=== PATIENT | female | born 1940 | race Caucasian/White ===

== ENCOUNTER → 2016-11-22 | Outpatient (CLI) | payer MEDICARE ==
--- NOTE | 2016-11-23 13:47 | MRI ---
EXAM DESCRIPTION: Lumbar Spine w/o Contrast CLINICAL HISTORY: 76 years Female, LUMBAR spine pain and DISEASE COMPARISON: None. TECHNIQUE: Multiplanar, multisequence imaging of the lumbar spine was performed without contrast. FINDINGS: There is dextroscoliosis of the lumbar spine with lateral translation of L4 on L5, L3 on L4 and L1 on L2. Marrow signal and vertebral body height are unremarkable. Endplate edema noted at L2-3 and L4-5. L1-L2: Circumferential disc osteophyte complex. There is lateral right neural foraminal narrowing. There is moderate left neural foraminal narrowing. The AP diameter of the spinal canal is unremarkable. L2-3: Facet degeneration bilaterally along with ligamentum flavum thickening. Circumferential disc osteophyte complex. The midline diameter of the spinal canal is adequate at 1 m. Bilateral neuroforamen are narrowed moderately. L3-4: Facet degeneration, ligamentum flavum thickening and unroofing of the intervertebral disc due to anterior listhesis. The midline diameter of the spinal canal is narrowed to 6 mm. There is moderate left and mild right neuroforaminal narrowing. L4-5: Moderate facet degeneration and ligamentum flavum thickening. There is a circumferential disc osteophyte complex. The midline diameter of the spinal canal is narrowed to 9 mm. There is moderate bilateral neural foraminal narrowing. L5-S1: Moderate facet degeneration. Anterior listhesis of L5 on S1. Unroofing of the intervertebral discs. The spinal canal is adequate. There is severe right and moderate left neural foraminal narrowing. IMPRESSION: There is left lateral translation and anterior listhesis of multiple levels as described above. This is most pronounced at L3-4. At this level there is grade 1 anterior listhesis which results in near severe spinal canal narrowing as the canal measures 6 mm in diameter. Multilevel neural foraminal narrowing noted with probable contact of the exiting right L4 and right L5 nerve roots. There is likely contact of the exiting left L1, left L2, left L3, left L4 and possibly the left L5 nerve roots. These findings could result in radiculopathy comment the patient is symptomatic. Electronically signed by: Bassam Castañeda MD 11/23/2016 8:43 AM [employer]
== END | disposition home or self-care (01) ==
LOC: MRI 11-01 08:38
PROVIDERS: ATTEND Family Medicine
DX: M51.27 Other intervertebral disc displacement, lumbosacral region (principal)

== ENCOUNTER 2017-02-06 11:00 | Day surgery (SDC) | payer MEDICARE ==
[2017-02-06] MEDS ORDERED: methylPREDNISolone ACETATE 80 MG/ML VIAL ONE (11:12)
[2017-02-06] MEDS ORDERED: SODIUM BICARBONATE VIAL 50 MEQ/50 ML VIAL ONE (11:12)
[2017-02-06] MEDS ORDERED: SODIUM CHLORIDE 0.9% 10 ML VIAL ONE (11:12)
[2017-02-06] MEDS: LIDOCAINE 1% MPF 5 ML VIAL ONE ×2 (12:05→12:11)
[2017-02-06 12:50] VITALS: BP 157/83; TEMP 98.4; O2SAT 99
== END 2017-02-06 12:30 | disposition home or self-care (01) ==
LOC: AMB 11:00
PROVIDERS: ATTEND Anesthesiology Pain Medicine
DX: M51.16 Intervertebral disc disorders with radiculopathy, lumbar region (principal); M54.5 Low back pain; I10 Essential (primary) hypertension; M81.0 Age-related osteoporosis without current pathological fracture; Z87.891 Personal history of nicotine dependence; Z79.899 Other long term (current) drug therapy; Z96.649 Presence of unspecified artificial hip joint
CPT/HCPCS: 62323; 76000; J1030

== ENCOUNTER → 2017-02-22 | Outpatient (CLI) | payer MEDICARE | END | disposition home or self-care (01) | LOC: GMAJ 14:31 | PROVIDERS: ATTEND Family Medicine | DX: N39.0 Urinary tract infection, site not specified (principal) ==

== ENCOUNTER → 2017-09-04 | Outpatient (CLI) | payer MEDICARE | END | disposition home or self-care (01) | LOC: GMAJ 11:42 | PROVIDERS: ATTEND Family Medicine | DX: E03.9 Hypothyroidism, unspecified (principal) ==

== ENCOUNTER → 2017-12-21 | Outpatient (CLI) | payer MEDICARE ==
--- NOTE | 2017-12-26 15:36 | MAM ---
EXAM DESCRIPTION: 3D Screening BILATERAL : Digital Mammography. CLINICAL HISTORY: 77 years Female ANNUAL SCREENING . No complaints. No family history of breast cancer. Postmenopausal. Currently on HRT. Prior cyst aspiration and biopsy left breast.. COMPARISON: 2-D digital screening bilateral study 08/22/2016. Report from prior examination also reviewed. TECHNIQUE: Bilateral CC and MLO projection full-field images, 3-D tomosynthesis digital mammographic technique. Also bilateral synthesized CC/ MLO full-field images. CAD not utilized. FINDINGS: The breast parenchymal density pattern is: Extremely dense breast tissue, which lowers the sensitivity of mammography. No skin thickening or nipple retraction right axillary lymph node. Bilateral coarse and solitary small microcalcifications. Groups of coarse calcifications in the right breast. No focal, stellate mass or density, focal asymmetry , and no suspicious microcalcifications bilaterally. Stable mammograms compared to prior study, taking into account differences in mammographic technique IMPRESSION: BI-RADS CATEGORY: 2 - BENIGN FINDINGS. FOLLOW UP: Routine digital bilateral screening, one year interval from November 2017. Written communication explaining the IMPRESSION and follow-up, will be mailed to the patient and referring health care provider. According to the [employer], yearly mammograms are recommended starting at age 40 and continuing as long as a woman is in good health. Any breast change noted on a breast self-exam should be reported promptly to the patient's healthcare provider. Breast MRI is recommended for women with an approximately 20-25% or greater lifetime risk of breast cancer, including women with a strong family history of breast or ovarian cancer and women who have been treated for Hodgkin's disease. A negative mammographic report should not delay tissue diagnosis in patients with significant clinical history or physical findings. Extremely dense breast tissue limits the sensitivity of digital mammography. Electronically signed by: Victoriano Pritchard MD 12/26/2017 3:34 PM CDT
== END ==
LOC: MAMMO 14:00
PROVIDERS: ATTEND Family Medicine
DX: Z12.31 Encounter for screening mammogram for malignant neoplasm of breast (principal)

== ENCOUNTER → 2018-03-28 | Outpatient (CLI) | payer MEDICARE | LOC: GMAJ 10:48 | PROVIDERS: ATTEND Family Medicine | DX: E03.9 Hypothyroidism, unspecified (principal) ==

== ENCOUNTER → 2018-09-18 | Outpatient (CLI) | payer MEDICARE | LOC: GMAJ 11:52 | PROVIDERS: ATTEND Family Medicine | DX: E03.9 Hypothyroidism, unspecified (principal) ==

== ENCOUNTER → 2019-05-16 | Outpatient (CLI) | payer MEDICARE ==
--- NOTE | 2019-05-17 13:27 | MAM ---
EXAM DESCRIPTION: 3D Screening BILATERAL : Digital Mammography. CLINICAL HISTORY: 78 years Female ANNUAL SCREENING . No complaints. No personal history of breast cancer. Remote family history of breast cancer. Childbirth. Hysterectomy 50+ years ago. HRT 5 or more years ago. Prior benign biopsy left breast. Lifetime risk of developing breast cancer (Tyrer-Cuzick model)(%): 3.8. COMPARISON: Bilateral screening digital breast tomosynthesis 12/21/2017. 2-D digital screening bilateral mammography 08/22/2016. TECHNIQUE: Bilateral CC and MLO projection full-field images, digital tomosynthesis mammographic technique. Bilateral digital 2-D full-field MLO images. CAD not available for tomosynthesis or 2-D images. FINDINGS: The breast parenchymal density pattern is: Heterogeneously dense breast tissue, which may obscure small masses. No skin thickening or nipple retraction.. At least 4 groups of coarse and heterogeneous microcalcifications in the right breast and solitary coarse microcalcifications left breast with a small group. Calcifications are increasing in the groups in the right breast making degenerating fibroadenomas more likely as the cause. Not associated with mass density.No new focal, stellate mass or density, focal asymmetry , and no suspicious microcalcifications bilaterally. IMPRESSION: Benign exam. BIRAD CATEGORY: 2 BENIGN FINDINGS. RECOMMENDATIONS: FOLLOW UP: Routine digital bilateral mammographic screening, one year interval from May 2019. Written communication explaining the IMPRESSION and follow-up, will be mailed to the patient and referring health care provider. According to the [employer], yearly mammograms are recommended starting at age 40 and continuing as long as a woman is in good health. Any breast change noted on a breast self-exam should be reported promptly to the patient's healthcare provider. Breast MRI is recommended for women with an approximately 20-25% or greater lifetime risk of breast cancer, including women with a strong family history of breast or ovarian cancer and women who have been treated for Hodgkin's disease. A negative mammographic report should not delay tissue diagnosis in patients with significant clinical history or physical findings. Extremely dense breast tissue limits the sensitivity of digital mammography. Electronically signed by: Victoriano Pritchard MD 05/17/2019 1:26 PM CDT
== END ==
LOC: MAMMO 10:30
PROVIDERS: ATTEND Family Medicine
DX: Z12.31 Encounter for screening mammogram for malignant neoplasm of breast (principal)

== ENCOUNTER → 2019-07-12 | Outpatient (CLI) | payer MEDICARE, OTHER ==
--- NOTE | 2019-07-14 15:43 | MRI ---
EXAM DESCRIPTION: Lumbar Spine w/o Contrast : Magnetic Resonance Imaging. CLINICAL HISTORY: Spinal stenosis COMPARISON: MR scan of the lumbar spine 11/22/2016. TECHNIQUE: Multiplanar, multiple standard sequences, non contrast MRI, lumbar spine. FINDINGS: L5-S1: The disc is well visualized on axial T2 series 501, image 3. Moderate disc space loss. 5 mm anterolisthesis with disc remnant bulging posteriorly with the endplate. Bilateral hypertrophic facets, more arthrosis right than left, with right lateral recess narrowing. AP canal diameter 11 mm. Moderate left foraminal narrowing and right foraminal stenosis. Unchanged since the prior study. 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 L4-L5: Diffuse disc desiccation and endplate changes more in the midline into the left of midline. Posterior broad-based bulge abutting the thecal sac. Posterior disc osteophyte complex larger on the right with right subarticular recess stenosis and compromising right L5 nerve. Severe left foraminal narrowing or mild stenosis. This is progressed since the prior study. Borderline right foraminal stenosis. Narrowing of the left subarticular recess. L3-L4: Disc desiccation and 5 mm grade 1 anterolisthesis. Anterior disc bulge. Posterior disc migrates above the disc space. Bilateral hypertrophic facet arthrosis and thickening of the ligaments. AP canal diameter 7.5 mm. Borderline bilateral foraminal stenosis. This has progressed since the prior study. L2-L3: Disc desiccation and minimal disc space loss. Disc desiccation minimal disc space loss anterior disc bulging and endplate ridging. Facet hypertrophic arthrosis bilaterally more on the left with flavum ligament thickening. AP canal diameter 10 mm. Moderate right foraminal narrowing and left foraminal stenosis. Unchanged since the prior study. L1-L2: Moderate disc desiccation and disc space loss more in the midline into the right of midline. Disc osteophyte complex encroaching into the right side soft tissues and right foramen with stenosis. Minimal narrowing of the left subarticular recess. Mild to moderate hypertrophic facet arthrosis and ligament thickening with AP canal diameter 11 mm. Moderate left foraminal narrowing. Stable since the prior study. L5-S1: Disc desiccation with disc space preserved. Small posterior disc bulge. Lateral mild hypertrophic facet arthrosis more left than right. Bilateral foramina are patent. Conus terminates at this level. Stable since the prior study. A larger muffins dextroscoliosis L1 L4. Circumscribed hyperintense T1 and T2 signal in a hemangioma Central L3 and posterior L2 stable since the prior study. Paravertebral soft tissues muscle atrophy paraspinal and psoas. Distal cord normal signal and caliber. Otherwise normal marrow signal in the remaining vertebral bodies and the posterior elements. Vertebral bodies are not compressed at any level. IMPRESSION: 1. Multiple levels of facet degeneration and thickened ligaments, bulging desiccated discs with disc space loss and spondylosis, canal and foraminal narrowing. 2. Anterolisthesis L5-S1 and moderate canal narrowing. Right foraminal stenosis stable since the prior study. 3. Posterior spondylosis L4-L5 with right subarticular recess stenosis compromising right L5 nerve. Severe left foraminal narrowing or mild stenosis. Progressed since the prior study. 4. Multifactorial L3-L4 moderate canal stenosis and borderline bilateral foraminal stenosis which is progressed since the prior study. 5. Multifactorial borderline mild central canal stenosis L2-L3 with left foraminal stenosis. Stable since the prior study. 6. Right side disc osteophyte complex at L1-L2 with right foraminal stenosis. Unchanged since the prior study. Electronically signed by: Victoriano Pritchard MD 07/14/2019 3:41 PM CDT
== END ==
LOC: MRI 10:52
PROVIDERS: ATTEND Family Medicine
DX: M48.062 Spinal stenosis, lumbar region with neurogenic claudication (principal); M51.36 Other intervertebral disc degeneration, lumbar region; M47.896 Other spondylosis, lumbar region; M43.17 Spondylolisthesis, lumbosacral region; M25.78 Osteophyte, vertebrae

== ENCOUNTER → 2019-08-12 | Outpatient (CLI) | payer MEDICARE | LOC: GMAJ 10:47 | PROVIDERS: ATTEND Family Medicine | DX: E03.9 Hypothyroidism, unspecified (principal) ==

== ENCOUNTER → 2019-11-20 | Outpatient (CLI) | payer MEDICARE | LOC: GMAJ 14:09 | PROVIDERS: ATTEND Family Medicine | DX: E03.8 Other specified hypothyroidism (principal); Z79.899 Other long term (current) drug therapy ==

== ENCOUNTER → 2020-02-14 | Outpatient (CLI) | payer MEDICARE | LOC: GMAJ 11:38 | PROVIDERS: ATTEND Family Medicine | DX: E03.9 Hypothyroidism, unspecified (principal) ==

== ENCOUNTER → 2020-02-26 | Outpatient (CLI) | payer OTHER ==
--- NOTE | 2020-02-27 13:50 | MRI ---
EXAM DESCRIPTION: Lumbar Spine w/o Contrast : Magnetic Resonance Imaging. CLINICAL HISTORY: SPONDYLOSIS COMPARISON: MRI scan lumbar spine without contrast July 2019. TECHNIQUE: Multiplanar, multiple standard sequences, non contrast MRI, lumbar spine. FINDINGS: L5-S1: The disc is well visualized on axial T2 series 501, image 3. Disc desiccation and moderate disc space loss more to the left of midline. Moderate endplate reactive changes anterior to the right of midline. Grade 1 anterolisthesis 6 mm. Posterior disc remnant uncovered with minimal bulge. Disc osteophyte complex and spondylolisthesis contributing to severe foraminal stenosis on the right, and moderate to severe left foraminal narrowing. Degenerative hypertrophy of the posterior flavum ligaments and facet joints (canal elements). AP canal diameter 11 mm. Bilateral subarticular recess narrowing. Perineural cyst right S1-S2. No interval change. L4-L5: Moderate to severe disc space loss more to the left of midline. Anterior disc bulging and endplate ridging. Chronic endplate Schmorl's nodes. Posterior broad-based disc remnant bulge with spurs. 2 mm grade 1 retrolisthesis. Degenerative hypertrophy of the canal elements more on the right. Right subarticular recess stenosis with possible compromise descending right L5 nerve. AP canal diameter 10 mm. Borderline right foraminal stenosis and severe left foraminal narrowing or borderline stenosis. L3-L4: Disc desiccation and mild to moderate disc space loss with anterior disc bulge. 6 mm grade 1 anterolisthesis with posterior disc uncovered and migrating superiorly. Moderate degenerative hypertrophy of the canal elements. AP canal diameter 7.5 mm. Disc bulge into the left foramen with facet hypertrophy resulting in borderline left foraminal stenosis. Mild to moderate right foraminal narrowing. Significant left subarticular recess narrowing or stenosis with possible compromise left L4 nerve. No significant change from prior study. L2-L3: Disc desiccation with minimal to moderate disc space loss on the left and moderate to advanced endplate reactive changes including Schmorl's nodes. Right-sided disc space is maintained. Anterior disc bulge. Posterior midline disc remnant migrating above the disc space 4 mm. Moderate degenerative hypertrophic changes in the canal elements more on the left. AP canal diameter 9 mm. Bilateral narrowing of the subarticular recesses. Severe right foraminal narrowing and borderline left foraminal stenosis. Compromise of the right foramen has progressed since the prior study, otherwise stable. L1-L2: Disc desiccation with left side disc space preserved but moderate endplate reactive changes including Schmorl's nodes in the midline into the left of midline. 3 mm grade 1 retrolisthesis with posterior broad-based disc spur complex. Anterior disc spur complex and disc bulge. Moderate degenerative hypertrophy of the canal elements. AP canal diameter 10 mm. Disc spur complex encroaching on the right foramen which is stenotic. Severe left foraminal narrowing. Minimal desiccation T12-L1 disc with disc space maintained. No posterior bulge. Minimal degenerative hypertrophy of the canal elements, more on the left. Canal and foramina are patent. Conus terminates at this level. Stable since the prior study. Lumbar dextroscoliosis with L5-S1 and lower thoracic compensatory levoscoliosis. Paravertebral soft tissues with muscle atrophy. Distal cord normal signal and caliber. Normal marrow signal in the remaining lumbar vertebral bodies and the posterior elements. However, abnormal marrow edema like signal hyperintense on STIR sequence and hypointense on T1 sequence in the S2 segment which is the lowest margin of the study. Vertebral bodies are not compressed at any level. IMPRESSION: 1. Multilevel abnormalities in the lumbar spine with spondylolisthesis, spondylosis, desiccated disc, bulging disc spur complexes, degenerative hypertrophy of the facet joints and posterior flavum ligaments, resulting in canal narrowing/stenosis, foraminal stenosis, and subarticular recess stenosis. Compromise of the right foramen at L2-L3 has progressed since the prior study, but the remaining lumbar spine abnormalities are stable. 2. New finding marrow edema like signal in the S2 segment which is at the lowest level of the study. If this correlates with clinical findings, consider follow-up MRI scan of the pelvis, sacrum, and coccyx without contrast. Electronically signed by: Victoriano Pritchard MD 02/27/2020 1:48 PM CDT
== END ==
LOC: MRI 13:48
PROVIDERS: ATTEND Family Medicine
DX: M47.817 Spondylosis without myelopathy or radiculopathy, lumbosacral region (principal); M51.36 Other intervertebral disc degeneration, lumbar region; M43.16 Spondylolisthesis, lumbar region; M46.96 Unspecified inflammatory spondylopathy, lumbar region; M51.86 Other intervertebral disc disorders, lumbar region; M48.061 Spinal stenosis, lumbar region without neurogenic claudication; M25.78 Osteophyte, vertebrae; M24.28 Disorder of ligament, vertebrae; R60.9 Edema, unspecified

== ENCOUNTER → 2020-03-26 | Outpatient (CLI) | payer MEDICARE ==
--- NOTE | 2020-03-26 13:55 | RAD ---
EXAM DESCRIPTION: Knee,Right 1 or 2 Views CLINICAL HISTORY: 79 years, Female, PAIN IN RIGHT KNEE COMPARISON: None TECHNIQUE: Only two views right knee submitted with no lateral view obtained. FINDINGS: End-stage degenerative disease with [id number] sclerotic appearance and loss of joint space in the lateral joint compartment present with mild valgus deformity. Less severe patellofemoral disease noted on the axial view of the patella. A lateral view to assess for joint effusion was not obtained. No acute fracture identified. IMPRESSION: 1. Severe end-stage lateral joint compartment degenerative arthropathy with [id number] appearance and valgus deformity. Electronically signed by: Nikita Kirby MD 03/26/2020 1:54 PM CDT
--- NOTE | 2020-03-26 13:57 | RAD ---
EXAM DESCRIPTION: Pelvis CLINICAL HISTORY: 79 years Female, HIP JD RIGHT COMPARISON: None. FINDINGS: Single view of the pelvis demonstrates marked osteopenia and intact left hip on this AP view. Right total hip replacement with satisfactory alignment is noted. No periarticular fracture or dislocation noted. The SI joints and symphysis pubis unremarkable. The superior and inferior pubic rami intact. IMPRESSION: Right total hip replacement in satisfactory alignment and appearance, otherwise negative pelvis with generalized osteopenia. Electronically signed by: Nikita Kirby MD 03/26/2020 1:56 PM CDT
== END ==
LOC: RAD 08:30
PROVIDERS: ATTEND Orthopaedic Surgery
DX: M17.11 Unilateral primary osteoarthritis, right knee (principal); M85.88 Other specified disorders of bone density and structure, other site; Z96.641 Presence of right artificial hip joint

== ENCOUNTER → 2020-04-20 | Outpatient (CLI) | payer MEDICARE | LOC: LAB.O 10:48 | PROVIDERS: ATTEND Orthopaedic Surgery | DX: Z01.818 Encounter for other preprocedural examination (principal); E03.9 Hypothyroidism, unspecified; Z79.899 Other long term (current) drug therapy ==

== ENCOUNTER 2020-06-22 05:23 | Day surgery (SDC) | payer MEDICARE ==
[2020-06-22] MEDS: BUPIVACAINE 0.5% 30 ML VIAL INJ ONE ×2 (08:08→08:23)
[2020-06-22] MEDS: BETAMETHASONE ACETATE/BETAMETH 6 MG/ML VIAL IM ONE ×2 (08:08→08:23)
[2020-06-22] MEDS: LIDOCAINE 1% 10 ML VIAL INJ ONE ×2 (08:09→08:23)
== END 2020-06-22 08:40 | disposition home or self-care (01) ==
LOC: AMB 05:23
PROVIDERS: ATTEND Family Medicine Sports Medicine
DX: M54.5 Low back pain (principal); M47.896 Other spondylosis, lumbar region; M46.1 Sacroiliitis, not elsewhere classified; M70.61 Trochanteric bursitis, right hip; E03.9 Hypothyroidism, unspecified; Z87.891 Personal history of nicotine dependence; Z79.899 Other long term (current) drug therapy

== ENCOUNTER → 2020-11-03 | Outpatient (CLI) | payer MEDICARE | LOC: GMAJ 14:13 | PROVIDERS: ATTEND Family Medicine | DX: E03.9 Hypothyroidism, unspecified (principal); Z79.899 Other long term (current) drug therapy ==